=== PATIENT | female | born 1995 | race Two or more races ===

== ENCOUNTER 2020-11-02 20:15 | Emergency (ER) | payer OTHER, SELFPAY ==
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
--- NOTE | 2020-11-02 20:28 | PC.NURSE ---
call for help notified.
[2020-11-02 20:52] VITALS: BP 114/84; PULSE 85; RESP 20; TEMP 36.7; O2SAT 100
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
[2020-11-02 21:18] LABS: Add Urine Microscopic? YES; Appearance Urine Clear (Clear); Bacteria Urine Trace /hpf; Bilirubin Urine Negative (Negative); Blood Urine 2+ (Negative); Color Urine Yellow (Yellow); Glucose Urine UA Negative (Negative); Ketones Urine Negative (Negative); Leukocyte Esterase Ur Negative LEU/UL (Negative); Mucus Urine Rare /lpf; Nitrate Urine Negative (Negative); Protein Urine Negative (Negative); RBC Urine 0-2 /hpf (0-2); Specific Grav Ur 1.024 (1.001-1.035); Squamous Epithelial Cell Urine Moderate /hpf (Few); Urobilinogen Urine Negative mg/dL (<2.0)
[2020-11-02 21:31] LABS: Barbiturate Screen Urine Negative (Negative); Benzodiazepines Screen Urine Negative (Negative)
[2020-11-02 21:32] LABS: Cannabinoid Screen Urine Positive (Negative)
[2020-11-02 21:33] LABS: Cocaine Screen Urine Negative (Negative); Methadone Screen Urine Negative (Negative); Opiate Screen Urine Negative (Negative); Phencyclidine Screen Urine Negative (Negative)
[2020-11-02] MEDS: DOXYCYCLINE HYCLATE 100 MG TABLET PO (21:46)
[2020-11-02] MEDS: cefTRIAXone 1 GM VIAL 0.5 GM IM (21:46)
[2020-11-02] MEDS: metroNIDAZOLE 250 MG TABLET 500 MG PO (21:47)
[2020-11-02] MEDS: LIDOCAINE HCL 1% LOCAL INJ 20 ML VIAL 2.1 ML XX (21:47)
[2020-11-02 22:17] LABS: Basophils Absolute Auto 0.1 K/mm3 (0.0-0.1); Basophils Percent Auto 0.5 % (0.2-1.2); Eosinophils Absolute Auto 0.4 K/mm3 (0-0.3); Eosinophils Percent Auto 3.7 % (0-4.4); Hematocrit 42.4 % (37.0-47.0); Hemoglobin 13.5 g/dL (12.0-15.0); Immature Granulocyte Absolute 0.03 K/mm3 (0.00-0.031); Immature Granulocyte Percent A 0.3 % (0-0.5); Lymphocytes Absolute Auto 4.37 K/mm3 (0.9-3.2); Lymphocytes Percent Auto 41.6 % (18.3-44.2); Mean Corpuscular HGB Conc 31.8 g/dl (32-36); Mean Corpuscular Hemoglobin 28.4 pg (26-34); Mean Corpuscular Volume 89.3 fl (80-100); Mean Platelet Volume 9.3 fl (7.4-10.4); Monocytes Absolute Auto 0.7 K/mm3 (0.1-0.6); Monocytes Percent Auto 6.3 % (2.6-8.5); Neutrophils Percent Auto 47.6 % (45.5-73.1); Platelet Count Result 394 k/mm3 (150-375); Red Blood Count 4.75 M/mm3 (4.2-5.4); Red Cell Distribution Width 15.4 % (11.5-14.5); White Blood Count 10.5 K/mm3 (4.5-10.0)
[2020-11-02 22:28] LABS: Alanine Aminotransferase 24 U/L (4-35); Albumin Level 4.4 g/dL (3.5-5.1); Alkaline Phosphatase 100 U/L (38-126); Anion Gap 12 mmol/L (8-16); Aspartate Amino Transferase 32 U/L (14-36); Bilirubin,Total 0.4 mg/dL (0.2-1.3); Blood Urea Nitrogen 17 mg/dL (7-17); Calcium 9.4 mg/dL (8.4-10.2); Carbon Dioxide 23 mmol/L (22-30); Chloride 102 mmol/L (98-107); Estimated Glomerular Filt Rate > 60; Glucose 115 mg/dL (65-105); Potassium 3.1 mmol/L (3.4-5.0); Sodium 137 mmol/L (137-145)
[2020-11-02 23:23] VITALS: BP 111/81; PULSE 74; RESP 17; O2SAT 100
[2020-11-02 23:25] LABS: HIV 1/2 Ab P24 Ag Result Negative (Negative)
[2020-11-02] MEDS: POTASSIUM CHLORIDE 20 MEQ TABLET 40 MEQ PO (23:29)
[2020-11-03 01:24] LABS: Hepatitis B Surface Antigen Negative (Negative)
[2020-11-03 01:30] LABS: HAV RESULT Negative (Negative); Hepatitis B Core IgM Result Negative (Negative)
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
[2020-11-03 01:42] LABS: Hepatitis C Virus Antibody Reactive (Negative)
[2020-11-03 01:48] VITALS: BP 118/74; PULSE 89; RESP 18; O2SAT 99
[2020-11-05 21:54] LABS: Hepatitis C RNA, Quant PCR 39700 IU/mL
== END 2020-11-03 01:48 ==
PROVIDERS: Physician Assistant; Emergency Provider Emergency Medicine
DX: T76.21XA Adult sexual abuse, suspected, initial encounter (principal); S00.432A Contusion of left ear, initial encounter; S40.012A Contusion of left shoulder, initial encounter; E87.6 Hypokalemia; R10.2 Pelvic and perineal pain; F17.200 Nicotine dependence, unspecified, uncomplicated; Y09 Assault by unspecified means
CPT/HCPCS: 10160; 36415; 70450; 72128; 73030; 80053; 80074; 80307; 81001; 81025; 85025; 86703; 86803; 87086; 87088; 87522; 96372; 99285; A9270; G0432; J0696